=== PATIENT | female | born 1950 | race Caucasian/White ===

== ENCOUNTER 2023-06-05 06:27 | Observation (INO) ==
[~2023-06-05 06:27] MED LIST: Buffered Lidocaine 1% SYRIN 1 ml INTRADERM ONE; Famotidine IV 10 MG/ML 2 ml VIAL (20 mg) IV ONE; Lactated Ringers 1000 ml BAG 1,000 ML IV SCH
[2023-06-05] MEDS ORDERED: Tranexamic Acid 1 GM/100ML BAG 2,000 MG/200 ML BAG IV ONE (07:49)
[2023-06-05] MEDS ORDERED: Clindamycin 900 MG/50 **NS BAG 900 MG/50 ML BAG ONE (07:49)
[2023-06-05] MEDS ORDERED: Famotidine IV 10 MG/ML 2 ml VIAL (20 mg) ONE (07:49)
[2023-06-05 08:04] LABS: Rapid COVID-19 Molecular Undetected (Undetected)
[2023-06-05] MEDS ORDERED: Midazolam 2 mg/2 ml VIAL 1 mg/ml 2 ml VIAL (2 mg) ONE (09:30)
[2023-06-05] MEDS ORDERED: Lidocaine 2% PF 5 ML VIAL ONE (09:30)
[2023-06-05] MEDS ORDERED: Phenylephrine IV 10 MG/ML 1 ml VIAL ONE (09:30)
[2023-06-05] MEDS ORDERED: ROPIVACAINE 5 MG/ML 30 ML BTL (0.5%) ONE (09:36)
[2023-06-05] MEDS ORDERED: Propofol 10 MG/ML 20 ML BTL ONE ×2 (10:31→11:56)
[2023-06-05] MEDS ORDERED: fentaNYL 100 mcg/2 ml 50 MCG/ML VIAL IV PRN (10:32)
[2023-06-05] MEDS ORDERED: Naloxone 0.4 mg VIAL 0.4 mg/ml 1 ml VIAL IV PRN (10:32)
[2023-06-05] MEDS ORDERED: HYDROmorphone 1 MG/1 ML SYRINGE IV PRN (10:32)
[2023-06-05] MEDS ORDERED: Dexamethasone IV 4 MG/ML VIAL 1 ml VIAL ONE (10:41)
[2023-06-05] MEDS ORDERED: Ondansetron 4 mg VIAL 2 MG/ML 2 ml VIAL ONE ×2 (10:41→13:04)
[2023-06-05] MEDS ORDERED: Acetaminophen IV 1 GM/100ML 1,000 MG/100 ML BAG IV ONE (10:49)
[2023-06-05] MEDS ORDERED: HYDROmorphone 0.5 MG/0.5 ML SYRINGE ONE (12:12)
[2023-06-05] MEDS ORDERED: Magnesium Hydroxide LIQ 30 ML UDC PO PRN (12:35)
[2023-06-05] MEDS ORDERED: Ondansetron ODT 4 mg TAB 4 MG TAB PO PRN (12:35)
[2023-06-05] MEDS ORDERED: Ondansetron 4 mg VIAL 2 MG/ML 2 ml VIAL IV PRN (12:35)
[2023-06-05] MEDS ORDERED: Lactulose 30 ml UDC PO PRN (12:35)
[2023-06-05] MEDS ORDERED: Morphine 2 MG/ML SYRINGE IV PRN (12:42)
[2023-06-05] MEDS ORDERED: Lactated Ringers 1000 ml BAG 1,000 ML IV SCH (13:00)
[2023-06-05] MEDS ORDERED: Dextrose 50% Syringe 50 ml 25 GM/50 ML SYRINGE IV PUSH PRN (15:41)
[2023-06-05] MEDS ORDERED: Prochlorperazine 5 mg/ml 2 ml VIAL (10 mg) IV PRN (15:48)
[2023-06-05] MEDS: Clindamycin 600 MG/D5W BAG 600 MG/50 ML BAG IV SCH (18:28)
[2023-06-05] MEDS: Lactated Ringers 1000 ml BAG 1,000 ML IV SCH ×2 (19:15→23:44)
[2023-06-05] MEDS: Magnesium Hydroxide LIQ 30 ML UDC PO SCH (22:13)
[2023-06-06] MEDS: Clindamycin 600 MG/D5W BAG 600 MG/50 ML BAG IV SCH ×2 (03:09→10:40)
[2023-06-06 06:29] LABS: Hematocrit 32.1 % (35-45); Mean Platelet Volume 7.6 fL (7.5-11.2); Platelet Count 222 10^3/uL (150-450)
[2023-06-06 06:56] LABS: Calcium 8.5 mg/dL (8.6-10.3); Creatinine, Serum 0.65 mg/dL (0.51-0.95); Potassium 3.7 mmol/L (3.5-5.0); eGFR CKD-EPI 92.3 (>60)
[2023-06-06] MEDS: Magnesium Hydroxide LIQ 30 ML UDC PO SCH (07:56)
[2023-06-06] MEDS: Lactated Ringers 1000 ml BAG 1,000 ML IV SCH (08:02)
[2023-06-06] MEDS ORDERED: Cholecalciferol (VIT D3) 1,000 unit TAB PO SCH (09:00)
[2023-06-06] MEDS ORDERED: Vitamin THERAPEUTIC TAB PO SCH (09:00)
[2023-06-06 09:33] VITALS: BP 123/64
== END 2023-06-06 13:23 | disposition home or self-care (01) ==
LOC: OR 06:27 → SSU 06:27
PROVIDERS: ADMIT Orthopaedic Surgery Adult Reconstructive Orthopaedic Surgery; ATTEND Orthopaedic Surgery Adult Reconstructive Orthopaedic Surgery